=== PATIENT | female | born 1965 | race Caucasian/White ===

== ENCOUNTER 2017-04-05 08:10 | Emergency (ER) | payer MEDICAID ==
[2017-04-05 08:22] VITALS: BP 143/92
--- NOTE | 2017-04-05 08:47 | EDM.PDOC ---
ED HPI GENERAL MEDICAL PROBLEM - General Chief Complaint: ENT Problem Stated Complaint: EAR PAIN/DIZZINESS Time Seen by Provider: 04/05/17 08:32 Source of Information: Reports: Patient, RN Notes Reviewed - History of Present Illness INITIAL COMMENTS - FREE TEXT/NARRATIVE: 51-year-old female comes in with right ear discomfort. She's had this for about a week, getting somewhat worse. There is been achiness and pressure type discomfort of the right ear canal. No drainage other than what she is put into the ear. She is worked with various types of drops over the past 5 days without meaningful relief of discomfort. She has had some mild nasal congestion this past week. She did have mild sore throat but that is gone. She is not currently coughing. There's been no fever or chills with this. No left ear symptomatology - Related Data Allergies Allergy/AdvReac Type Severity Reaction Status Date / Time aspirin [From Percodan] Allergy Nausea Verified 11/25/15 02:25 oxycodone HCl [From Percodan] Allergy Nausea Verified 11/25/15 02:25 oxycodone terephthalate Allergy Nausea Verified 11/25/15 02:25 [From Percodan] Home Meds: Home Meds . [No Known Home Meds] 11/25/15 [History] Past Medical History Genitourinary History: Reports: UTI, Recurrent [employer] History: Reports: Musculoskeletal History: Reports: Fracture Psychiatric History: Reports: Anxiety, Depression, Panic Attack, PTSD Oncologic (Cancer) History: Reports: Cervix - Past Surgical History Female Surgical History: Reports: Hysterectomy Musculoskeletal Surgical History: Reports: Other (See Below) Social & Family History - Family History Family Medical History: Noncontributory - Tobacco Use Smoking Status *Q: Current Every Day Smoker Years of Tobacco use: 35 Packs/Tins Daily: 0.5 - Caffeine Use Caffeine Use: Reports: Soda - Recreational Drug Use Recreational Drug Use: No ED ROS ENT - Review of Systems Review Of Systems: See Below Constitutional: Denies: Fever, Chills HEENT: Reports: Ear Pain, Rhinitis (mild, improving), Throat Pain (mild, gone). Denies: Ear Discharge, Hearing Loss Respiratory: Reports: Cough. Denies: Shortness of Breath Cardiovascular: Denies: Chest Pain (occasional, gone) GI/Abdominal: Denies: Abdominal Pain, Nausea, Vomiting Musculoskeletal: Reports: No Symptoms Skin: Reports: No Symptoms Neurological: Denies: Numbness, Tingling ED EXAM, ENT - Physical Exam Exam: See Below Eye Exam: Bilateral Eye: PERRL Ears: Normal External Exam, Auricular Tenderness (mild), Canal Material (there is some fluid in the mid to external canal, inferior aspect), Canal Swelling ( mild inferior aspect of canal), TM Bulging (mild). No: Canal Foreign Body, TM Erythema, TM Perforation Nose: Normal Inspection Mouth/Throat: Normal Inspection Head: Atraumatic. No: Facial Swelling Neck: Supple, Full Range of Motion. No: Lymphadenopathy (L), Lymphadenopathy (R ) Respiratory/Chest: No Respiratory Distress, Lungs Clear, Normal Breath Sounds Cardiovascular: Regular Rate, Rhythm Extremities: Normal Inspection, Normal Range of Motion Neurological: Alert, Oriented, No Motor/Sensory Deficits Skin: Warm, Dry, Normal Color Course - Vital Signs Last Recorded V/S: Last Vital Signs Temp 97.6 F 04/05/17 08:17 Pulse 97 04/05/17 08:17 Resp 18 04/05/17 08:17 BP 143/92 H 04/05/17 08:17 Pulse Ox 100 04/05/17 08:17 Departure - Departure Time of Disposition: 08:45 Disposition: Home, Self-Care 01 Clinical Impression: Otitis externa Qualifiers: Otitis externa type: unspecified type Chronicity: acute Laterality: right Qualified Code(s): H60.501 - Unspecified acute noninfective otitis externa, right ear - Discharge Information Instructions: Otitis Media, Adult, [id number] Referrals: Jeannine Hernandez MD [Primary Care Provider] - Forms: ED Department Discharge Additional Instructions: Cortisporin ear drops, 4 drops right ear 4 times daily for 5 days, amoxicillin 1000 mg twice daily for 5 days, you may alternate Tylenol and ibuprofen if needed for discomfort. Symptoms should gradually get better for you day by day, follow-up clinic if not back to normal within 5-7 days as expected, return to ED as needed
== END 2017-04-05 08:54 | disposition home or self-care (01) ==
LOC: JD.ED 08:10
DX: H60.501 Unspecified acute noninfective otitis externa, right ear (principal); F17.210 Nicotine dependence, cigarettes, uncomplicated; F32.9 Major depressive disorder, single episode, unspecified; F41.0 Panic disorder [episodic paroxysmal anxiety]; Z88.6 Allergy status to analgesic agent; Z85.41 Personal history of malignant neoplasm of cervix uteri; Z90.710 Acquired absence of both cervix and uterus
CPT/HCPCS: 99283; 99284